=== PATIENT | female | born 1955 | race Caucasian/White ===

== ENCOUNTER 2025-03-07 19:27 | Emergency (ER) | payer OTHER, SELFPAY ==
[2025-03-07 19:30] VITALS: BP 144/89
[2025-03-07 22:00] VITALS: BP 143/98
[2025-03-07 22:05] VITALS: BMI 30.4
[2025-03-07] MEDS: MOTRIN 600 MG PO (22:08)
[2025-03-07] MEDS: ULTRAM 50 MG PO (22:08)
--- NOTE | 2025-03-07 22:16 | ED.GENMED ---
History of Present Illness
General
Chief Complaint: BURN-MINOR
Time Seen by Provider: 03/07/25 21:45
History of Present Illness
History of Present Illness:
70-year-old female presents to the emergency department for evaluation of minor fierro to bilateral index fingers and thumbs when she picked up a hot skillet while cooking. She is complaining of exquisite pain.
Past History
Past History
ED Past Medical History: GERD
ED Past Surgical History: Tonsilectomy
Social History
Tobacco: Non-smoker
Alcohol: Occasional
Drug: None
Personal:
Living: with family
Employment: Not employed
Review of Systems
Review of Systems
Allergies reviewed?: Yes
All Other Systems: ROS reviewed and negative except as documented in HPI and ROS
Phy Exam
Physical Exam
Physical Exam:
GEN: Well appearing, NAD, WDWN
HEENT: Oral mucosa moist, no scleral icterus
Cardiac: Regular rate
Lung: No respiratory distress, no tachypnea
MSK: No gross deformity or injuries
Skin: Good color, no pallor or jaundice, no rashes. Small partial-thickness fierro with intact bullae to the thumb pads bilaterally as well as the index fingers bilaterally, range of motion of the digits is intact
Neuro: AO x3, moves all extremities freely
Psych: Calm, cooperative
Course
Orders/Labs/Results
Orders:
Orders
03/07/25 21:56
Ibuprofen [Motrin] 600 mg PO NOW STA
Tramadol HCl [Ultram] 50 mg PO NOW STA
Vital Signs
Initial and Last Documented VS:
Initial Vital Signs
Temp Pulse Resp BP Pulse Ox
97.5 F 84 16 144/89 97
03/07/25 19:30 03/07/25 19:30 03/07/25 19:30 03/07/25 19:30 03/07/25 19:30
Last Documented Vital Signs
Temp Pulse Resp BP Pulse Ox
97.8 F 68 20 143/98 94
03/07/25 22:00 03/07/25 22:00 03/07/25 22:00 03/07/25 22:00 03/07/25 22:17
MDM/Problems Addressed
MDM/Problems Addressed:
Wounds dressed with bacitracin and nonstick gauze, discussed supportive care and analgesic regimen
*Pulse Oximetry
SaO2: 94
Oxygen Mode of Delivery: Room air
Patient hypoxic: no
*Critical Care Note
Total Time (30-74mins, 75-104mins- exclusive of procedures): Not Applicable
ED Attending Note
-
Portions of this chart may have been created with voice recognition software.� Occasional wrong word or��sound alike� substitutions may have occurred due to the inherent limitations of voice recognition software.
Discharge Plan
Departure
Patient Disposition: Home (Routine Discharge)
Date of Disposition: 03/07/25
Time of Disposition: 22:16
Patient with high blood pressure during this ER visit?: No
Discharge Problem:
Burn of hand including fingers
Instructions: Skin Fierro (DC)
Prescriptions:
No Action
Probiotic 1 CAP tablet
1 tab PO DAILY
Vitamin C 1,600 MG tablet
1,600 mg PO DAILY
magnesium gluconate 120 MG tablet
120 mg PO QPM
oxycodone 5 mg tablet
5 - 10 mg PO Q4HPRN PRN (Reason: moderate to severe pain) Qty: 20 0RF
Activity Restrictions/Additional Instructions:
Elevate the hands and take tylenol and ibuprofen for pain
Change the dressing twice per day with bacitracin and non stick gauze
Continue dressing changes for 1 week
Interventions
Interventions:
*Risk Screen - Suicide Last Done: 03/07/25 19:30
*General Assessment Last Done: 03/07/25 19:30
*Neglect/Abuse Screening Last Done: 03/07/25 19:30
*ED- Fall Risk Assessment Last Done: 03/07/25 22:09
*ED COVID-19 Vaccine History Last Done: 03/07/25 22:09
*Nursing Disposition Last Done: 03/07/25 22:28
ED-Skin Assessment Last Done: 03/07/25 22:09
Discharge Date and Time
Discharge Date/Time: 03/07/25 22:29
Print Language: TURKISH
== END 2025-03-07 22:29 | disposition home or self-care (01) ==
LOC: EMR 19:27
PROVIDERS: EMERGENCY PHYSICIAN Emergency Medicine; FAMILY PHYSICIAN Nurse Practitioner
DX: T23.042A Burn of unspecified degree of multiple left fingers (nail), including thumb, initial encounter (principal); T23.041A Burn of unspecified degree of multiple right fingers (nail), including thumb, initial encounter; X15.3XXA Contact with hot saucepan or skillet, initial encounter; K21.9 Gastro-esophageal reflux disease without esophagitis
CPT/HCPCS: 99282